=== PATIENT | female | born 1950 | race African-American/Black ===

== ENCOUNTER 2016-12-03 15:06 | Emergency (ER) | payer BC, MEDICARE ==
[~2016-12-03] VITALS: Ht 157.5 cm; Wt 59.0 kg
[~2016-12-03 15:06] MED LIST: AMLO1CAP8 PO; Aspirin PO; CARV12.52 PO; CARV25TA PO; Doxycycline Hyclate PO; FERR-26 PO; FURO-68 PO; FURO40TA4 PO; Hydralazine Hcl PO; LISI10TA2 PO; LISI40TA PO; NITR0.4T SL; PANT40TA3 PO; POTA20TA4 PO; PRAV40TA2 PO; SPIR25TA3 PO; WARF-78 PO; WARF5TAB7 PO
[2016-12-03 15:15] VITALS: BP 141/63
[2016-12-03] MEDS ORDERED: CYCL10TA2 PO ×2 (15:23→15:24)
--- NOTE | 2016-12-03 15:25 | PHYS DOC ---
Past Medical History Past Medical History: A-Fib, Arrhythmia, CHF, Hypertension Past Surgical History: Other Additional Past Surgical Histo: PPM/Defib Alcohol Use: None Drug Use: None Adult General Chief Complaint Chief Complaint: HIP PAIN HPI HPI Patient is a 66 year old female presents to the emergency department with complaints of left lumbar discomfort. Patient states yesterday she bent at the waist to remove something from a cabinet and felt a slight pulling sensation. She states that the pain has waxed and waned. She states he gets better with heat. She states she has no pain upon arrival the emergency department. She has no loss of bowel or bladder control. No loss function lower extremity. Review of Systems Review of Systems Constitutional: Denies fever or chills [] Eyes: Denies change in visual acuity, redness, or eye pain [] HENT: Denies nasal congestion or sore throat [] Respiratory: Denies cough or shortness of breath [] Cardiovascular: No additional information not addressed in HPI [] GI: Denies abdominal pain, nausea, vomiting, bloody stools or diarrhea [] : Denies dysuria or hematuria [] Musculoskeletal: low back pain, left Integument: Denies rash or skin lesions [] Neurologic: Denies headache, focal weakness or sensory changes [] Endocrine: Denies polyuria or polydipsia [] Allergies Allergies Allergies Coded Allergies Type Severity Reaction Last Updated Verified No Known Drug Allergies 12/03/16 No Physical Exam Physical Exam Constitutional: Well developed, well nourished, no acute distress, non-toxic appearance. [] HENT: Normocephalic, atraumatic, bilateral external ears normal, oropharynx moist, no oral exudates, nose normal. [] Eyes: PERRLA, EOMI, conjunctiva normal, no discharge. [] Neck: Normal range of motion, no tenderness, supple, no stridor. [] Cardiovascular:Heart rate regular rhythm, no murmur [] Lungs & Thorax: Bilateral breath sounds clear to auscultation [] Abdomen: Bowel sounds normal, soft, no tenderness, no masses, no pulsatile masses. [] Skin: Warm, dry, no erythema, no rash. [] Back: mild tenderness left sacroiliac crest, no CVAT. No radiation of pain, Negative straight raise leg test, MS 5/5 Extremities: No tenderness, no cyanosis, no clubbing, ROM intact, no edema. [] Neurologic: Alert and oriented X 3, normal motor function, normal sensory function, no focal deficits noted. [] Psychologic: Affect normal, judgement normal, mood normal. [] EKG EKG [] Radiology/Procedures Radiology/Procedures [] Course & Med Decision Making Course & Med Decision Making Pertinent Labs and Imaging studies reviewed. (See chart for details) [] Dragon Disclaimer Dragon Disclaimer This electronic medical record was generated, in whole or in part, using a voice recognition dictation system. Departure Departure Impression: Primary Impression: Lumbar strain Disposition: HOME, SELF-CARE Condition: STABLE Referrals: VAIBHAV VELEZ MD (PCP) Patient Instructions: Low Back Strain with Rehab[facility] Additional Instructions: Tylenol [id number] as labeled and is indicated for symptom management. Moist heat to affected area. Return in the emergency department his symptoms or concerns or worsening of current condition. Scripts Cyclobenzaprine Hcl (CYCLOBENZAPRINE HCL) 10 Mg Tablet 1 TAB PO TID Y for back pain, #30 TAB Prov: ASHIA MEDLEY APRN 12/03/16 Problem Qualifiers Primary Impression: Lumbar strain Encounter type: initial encounter Qualified Codes: S39.012A - Strain of muscle, fascia and tendon of lower back, initial encounter ASHIA MEDLEY APRN Dec 03, 2016 15:25
== END 2016-12-03 15:42 | disposition home or self-care (01) ==
LOC: ER 15:06
DX: S39.012A Strain of muscle, fascia and tendon of lower back, initial encounter (principal); I48.91 Unspecified atrial fibrillation; I11.0 Hypertensive heart disease with heart failure; I50.9 Heart failure, unspecified; X58.XXXA Exposure to other specified factors, initial encounter; Y93.89 Activity, other specified; Y92.89 Other specified places as the place of occurrence of the external cause; Y99.8 Other external cause status
CPT/HCPCS: 99283

== ENCOUNTER → 2017-01-09 | Outpatient (CLI) | payer BC ==
[~2017-01-09] MED LIST changes: +CYCL10TA2 PO
--- NOTE | 2017-01-09 13:04 | RAD ---
INDICATION: PAIN IN LEFT ANKLE AND JOINTS OF LEFT FOOT. COMPARISON: None. IMPRESSION: Left foot: 3 views obtained. No definite acute fracture or dislocation. There is some degenerative changes as well as plantar calcaneal spur and Achilles enthesophyte.
== END | disposition home or self-care (01) ==
LOC: RAD 09:41
PROVIDERS: ATTEND Family Medicine
DX: M25.572 Pain in left ankle and joints of left foot (principal)
CPT/HCPCS: 73630

== ENCOUNTER 2017-06-21 05:34 | Emergency (ER) | payer BC ==
[2017-06-21 06:44] LABS: ADD MAN DIFF? NO
[2017-06-21 06:55] LABS: BASO % 1 % (0-3); EOS # 0.2 x10^3/uL (0.0-0.7); EOS % 4 % (0-3); HEMATOCRIT 33.2 % (36.0-47.0); HEMOGLOBIN 10.7 g/dL (12.0-15.5); LYMPH # 2.1 x10^3/uL (1.0-4.8); LYMPH % 36 % (24-48); MEAN CORPUSCULAR HEMOGLOBIN 28 pg (25-35); MEAN CORPUSCULAR HGB CONC 32 g/dL (31-37); MEAN CORPUSCULAR VOLUME 86 fL (79-100); MONO # 0.9 x10^3/uL (0.0-1.1); MONO % 15 % (0-9); NEUT # 2.6 x10^3uL (1.8-7.7); NEUT % 45 % (31-73); PLATELET COUNT 179 x10^3/uL (140-400); RED BLOOD COUNT 3.87 x10^6/uL (3.50-5.40); WHITE BLOOD COUNT 5.9 x10^3/uL (4.0-11.0)
[2017-06-21 07:06] LABS: ANION GAP 9 (6-14); BLOOD UREA NITROGEN 77 mg/dL (7-20); BUN/CREATININE RATIO 33 (6-20); CALCIUM 9.5 mg/dL (8.5-10.1); CARBON DIOXIDE 26 mmol/L (21-32); CHLORIDE 103 mmol/L (98-107); CREATININE 2.3 mg/dL (0.6-1.0); GFR 25.6; GLUCOSE 109 mg/dL (70-99); POTASSIUM 4.1 mmol/L (3.5-5.1); SODIUM 138 mmol/L (136-145)
[2017-06-21 07:12] LABS: ALBUMIN 3.4 g/dL (3.4-5.0); ALBUMIN/GLOBULIN RATIO 0.8 (1.0-1.7); ALK PHOS 110 U/L (46-116); ALT (SGPT) 16 U/L (14-59); AST (SGOT) 22 U/L (15-37); C-REACTIVE PROTEIN 3.9 mg/L (0-3.3); TOTAL BILIRUBIN 0.4 mg/dL (0.2-1.0); TOTAL PROTEIN 7.9 g/dL (6.4-8.2)
[2017-06-21 07:32] LABS: INR 1.7 (0.8-1.1); PARTIAL THROMBOPLASTIN TIME 31 SEC (24-38); PROTHROMBIN TIME PATIENT 19.7 SEC (11.7-14.0)
[2017-06-21 08:21] LABS: SEDIMENTATION RATE 50 (0-25)
== END 2017-06-21 12:15 | disposition home or self-care (01) ==
LOC: ER 05:34
DX: R51 Headache (principal); I11.0 Hypertensive heart disease with heart failure; I50.9 Heart failure, unspecified; D35.2 Benign neoplasm of pituitary gland; R79.1 Abnormal coagulation profile; N28.9 Disorder of kidney and ureter, unspecified; I48.91 Unspecified atrial fibrillation; E78.00 Pure hypercholesterolemia, unspecified; Z79.01 Long term (current) use of anticoagulants
CPT/HCPCS: 36415; 70450; 76882; 76937; 80053; 85025; 85610; 85651; 85730; 86140; 93005; 99285-25

== ENCOUNTER → 2018-05-25 | Outpatient (CLI) | payer MEDICARE ==
[2017-06-21 11:39] VITALS: BP 151/77
[~2018-05-25] MED LIST changes: +CARV12.511 PO; -CARV12.52 PO; -FERR-26 PO; +FERR325T14 PO; +LISI-130 PO; -LISI40TA PO; -SPIR25TA3 PO; +SPIR25TA5 PO; +TORS20TA PO; +WARF-31 PO; -WARF5TAB7 PO
--- NOTE | 2018-05-25 15:42 | RAD ---
CT of the head without contrast for pituitary adenoma, follow-up. Comparison is to similar study dated 06/21/2017. TECHNIQUE AND FINDINGS: Contiguous helical 5 mm axial images are obtained from the skull base to the vertex. No IV contrast was a resin remover. FINDINGS: There is no evidence of acute territorial infarction, or intracranial hemorrhage. There is no mass, mass effect, or midline shift. Ventricles and subarachnoid spaces are grossly unremarkable. No extra axial fluid collections are seen. Small megacisterna magna is present. The posterior fossa, brainstem, bilateral orbits, and mastoid air cells are all clear. Right ethmoid air cells are notable for patchy mucosal thickening. Remaining visualized paranasal sinuses are clear. There is persistent prominence of the pituitary gland within the pituitary fossa. Mild scalloping of the anterior sella turcica is present today. This was not definitely present on the prior exam, however there are differences in slice acquisition which may comparison somewhat difficult. IMPRESSION: 1. Persistent enlargement of the pituitary, with mild scalloping of the anterior sella turcica. Overall, the gland does appear slightly more prominent, however noncontrast CT scan has poor sensitivity for detecting pituitary pathology, including subtle changes in growth. MRI exam of the pituitary is recommended for more accurate evaluation if clinically feasible, and surveillance with MRI should also be considered to increase sensitivity for subtle changes and reduce radiation exposure. If the patient cannot undergo MRI examination, follow-up evaluation with contrast enhanced CT scan of the head is recommended. PQRS Compliance Statement: One or more of the following individualized dose reduction techniques were utilized for this examination: 1. Automated exposure control 2. Adjustment of the mA and/or kV according to patient size 3. Use of iterative reconstruction technique Electronically signed by: Tom Cevallos MD (05/25/2018 3:39 PM) [id number]
== END | disposition home or self-care (01) ==
LOC: CT 11:01
PROVIDERS: ATTEND Family Medicine
DX: D35.2 Benign neoplasm of pituitary gland (principal)
CPT/HCPCS: 70450

== ENCOUNTER → 2019-10-10 | Outpatient (CLI) | payer MEDICARE ==
[2017-06-21 11:39] VITALS: BP 151/77
[~2019-10-10] MED LIST changes: -AMLO1CAP8 PO; +AMLO1CAP9 PO; -NITR0.4T SL; +NITR0.4T24 SL; -PANT40TA3 PO; +PANT40TA77 PO; -WARF-78 PO; +WARF5TAB2 PO
--- NOTE | 2019-10-10 17:58 | RAD ---
PQRS Compliance Statement: One or more of the following individualized dose reduction techniques were utilized for this examination: 1. Automated exposure control 2. Adjustment of the mA and/or kV according to patient size 3. Use of iterative reconstruction technique CT HEAD WO CONTRAST Clinical Indication: Reason: PITUITARY ADENOMA Comparison: CT head without contrast, May 25, 2018. Procedure: Axial images are obtained of the head from the skull base through the vertex without IV contrast. Findings: There is unchanged enlargement of the pituitary. There is upward convexity of the gland. The sella appears stable. The ventricles and sulci are normal for the patient's age. No mass-effect, midline shift, hemorrhage, extra-axial fluid collection, or obvious acute infarction is identified. Basilar cisterns are patent. Bone windows demonstrate no acute calvarial abnormality. The visualized paranasal sinuses are clear. Mastoid air cells are well aerated. IMPRESSION: 1. No acute intracranial abnormality. 2. Unchanged enlargement of the pituitary. Electronically signed by: Ramiro Burns MD (10/10/2019 5:55 PM) [id number]
== END | disposition home or self-care (01) ==
LOC: CT 11:09
PROVIDERS: ATTEND Family Medicine
DX: D35.2 Benign neoplasm of pituitary gland (principal)
CPT/HCPCS: 70450

== ENCOUNTER → 2021-01-09 | Day surgery (SDC) | payer MEDICARE ==
[~2021-01-09] VITALS: Ht 157.5 cm; Wt 63.0 kg
[~2021-01-09] MED LIST changes: +AMLO-186 PO; +CARV25TA2 PO; +CYCL10TA19 PO; -CYCL10TA2 PO; +FURO20TA3 PO; +ISOS30TA19 PO; +IV RINGERS,LACTATED 1000ML 1,000 ML IV SCH; +LISI10TA16 PO; -LISI10TA2 PO; +POTA-121 PO; -POTA20TA4 PO; +PROPOFOL 10 MG/ML (20ML) VIAL. IV ONE; +WARF4TAB64 PO
[2021-01-09 08:36] VITALS: BP 146/65
[2021-01-09 10:01] VITALS: BP 161/77
--- NOTE | 2021-01-10 09:00 | CONS ---
DATE OF CONSULTATION: 01/09/2021 UPDATED HISTORY AND PHYSICAL REASON FOR CONSULTATION: History of colon polyps. HISTORY OF PRESENT ILLNESS: A 70-year-old -Citizen Of [place] female whose past medical history significant for hypertension, congestive heart failure, chronic kidney disease, hyperlipidemia, seen for interval exam. Bowel habits are regular without diarrhea. Past endoscopies reveal polyps. Denies any melena and/or hematochezia. She is otherwise without additional complaints. PAST MEDICAL HISTORY: CHF, hemorrhoids, hyperlipidemia, hypertension, chronic renal insufficiency, colonic polyps. ALLERGIES: None. MEDICATIONS: Amlodipine, carvedilol, ferrous sulfate, furosemide, isosorbide, Nitrostat, pravastatin, spironolactone, warfarin, hydralazine. FAMILY HISTORY: Significant for hypertension and CVAs. PAST SURGICAL HISTORY: Significant for tonsillectomy, defibrillator implant. REVIEW OF SYSTEMS: Per records. PHYSICAL EXAMINATION: GENERAL: Reveals a well-nourished, well-developed female who is alert and cooperative, in no acute distress. VITAL SIGNS: Temperature 97.8, pulse ____, respiratory rate 18. LUNGS: Clear. CARDIOVASCULAR: Reveals an S1, S2, without S3, S4 or appreciable murmur. Implantable defibrillator is noted. ABDOMEN: Soft abdomen, normal bowel sounds without appreciable hepatosplenomegaly. IMPRESSION AND PLAN: History of colon polyps. Surveillance exam is recommended at this time and Endoclips will be used if polypectomies are needed with anticoagulation to reduce the risk of bleeding. I would like to thank Dr. Page for allowing us to consult and participate in the patient's care. CONRAD/MOHSEN/CARLOZ DR: Tyra TID: [id number]
--- NOTE | 2021-01-11 18:22 | PATHOLOGY ---
[facility] Accession Number: [id number] . 01 Material submitted: . PART A: cecum - CECAL POLYP BIOPSY PART B: sigmoid colon - SIGMOID POLYP BIOPSY PART C: rectum - RECTAL POLYPECTOMY . 01 Clinical history: . HX POLYPS COLONOSCOPY . 02 Diagnosis: A. Colon biopsies, cecal polyps: - Tubular adenomas. - Melanosis coli. . B. Colon biopsies, sigmoid polyps: - Tubular adenomas. - Melanosis coli. . C. Rectal polypectomy: - Tubular adenoma. (JPM:tiffany; 01/11/2021) S 01/11/2021 1003 Local . 02 Comment: There is no high grade dysplasia or evidence of malignancy. (JPM:tiffany; 01/11/2021) . 02 Electronically signed: . Edwin Blancas MD, Pathologist NPI- [id number] . 01 Gross description: . A. The specimen is received in formalin, labeled "Eliz Miles, cecal polyp". Received are multiple segments of pale herman tissue ranging in size from 0.2-0.3 cm in maximum dimensions. The specimen is submitted entirely in cassette A1. . B. The specimen is received in formalin, labeled "Eliz Miles, sigmoid polyp biopsy". Received are four segments of pale herman tissue ranging in size from 0.2-0.3 cm in maximum dimensions. The specimen is submitted entirely in cassette B1. . C. The specimen is received in formalin, labeled "Eliz Miles, rectal polypectomy". Received is a segment of light herman tissue measuring 1.1 x 0.9 x 0.5 cm in greatest dimensions. The surgical margin is inked and the segment is trisected. The specimen is submitted entirely in cassette C1. (CAA; 01/10/2021) QAC/QAC 01/10/2021 0900 Local . 02 Pathologist provided ICD-10: D12.0, D12.5, D12.8, K63.89 . 02 CPT . 443118, 282065, 314503 Specimen Comment: A courtesy copy of this report has been sent to [phone], [phone] Specimen Comment: [id number] Specimen Comment: Report sent to / DR VELEZ Performed at: 01 [facility] [address], [place] [id number] MD Mariano Alves MD Phone: [phone] Performed at: 02 [facility] [address], [place] [id number] MD Edwin Blancas MD Phone: [phone]
== END | disposition home or self-care (01) ==
LOC: ENDOS 07:53
PROVIDERS: ATTEND Internal Medicine Gastroenterology
DX: Z12.11 Encounter for screening for malignant neoplasm of colon (principal); D12.0 Benign neoplasm of cecum; D12.5 Benign neoplasm of sigmoid colon; D12.8 Benign neoplasm of rectum; K63.89 Other specified diseases of intestine; K64.0 First degree hemorrhoids; I13.0 Hypertensive heart and chronic kidney disease with heart failure and stage 1 through stage 4 chronic kidney disease, or unspecified chronic kidney disease; I50.9 Heart failure, unspecified; N18.9 Chronic kidney disease, unspecified; I48.91 Unspecified atrial fibrillation; I25.10 Atherosclerotic heart disease of native coronary artery without angina pectoris; Z79.899 Other long term (current) drug therapy; Z98.890 Other specified postprocedural states; Z86.010 Personal history of colon polyps; Z82.49 Family history of ischemic heart disease and other diseases of the circulatory system
CPT/HCPCS: 45380; 45385; J2704; 88305